=== PATIENT | female | born 1935 | race Caucasian/White ===

== ENCOUNTER 2018-12-31 10:43 | Emergency (ER) | payer MEDICARE ==
[~2018-12-31] VITALS: Ht 165.1 cm; Wt 127.0 kg
--- NOTE | 2018-12-31 11:10 | RAD ---
Chest radiograph 12/31/2018 10:53 AM INDICATION: Cardiac arrest COMPARISON: None available TECHNIQUE: Supine frontal view of the chest is provided. FINDINGS: The cardiomediastinal silhouette is within normal limits. Endotracheal tube terminates 2.2 cm above the level of the jose. There is asymmetric alveolar airspace disease involving the right upper lobe with mild pulmonary vascular congestion. No pleural effusions or pneumothorax. IMPRESSION: Endotracheal tube is in appropriate position. There is asymmetric alveolar airspace disease involving the right upper lobe with underlying mild pulmonary vascular congestion. Findings most favor asymmetric pulmonary edema or hemorrhage in setting of cardiac arrest. Electronically signed by: Cally Belle MD (12/31/2018 11:07 AM) [id number]
--- NOTE | 2018-12-31 11:18 | PHYS DOC ---
Past History Past Medical History: CHF, Diabetes, Hypertension Smoking: Non-smoker Adult General Chief Complaint Chief Complaint: post code blue HPI HPI Patient is a 83 year old female with history of advanced CHF on hospice care without DNR condition brought in by EMS with cardiopulmonary addressed. Patient had flulike symptom with sick contacts at home for the last few weeks and continued to have cough and congestion and shortness of breath. Patient complaining of more shortness of breath today and had weakness or loss of consciousness and cardiorespiratory arrest with starting CPR by firefighters. EMS reported that patient had pulseless ventricular fibrillation and electrical shock and CPR was started. Patient was intubated with 5.5 ET tube with good oxygenation. Patient had several episodes of cardiac arrest and returning pulse. Patient brought to the ED with spontaneous pulse and assisted breathing. Patient was on amiodarone drip. Review of Systems Review of Systems Unable to obtain because of altered level of consciousness and CPR in progress Physical Exam Physical Exam Constitutional: Unresponsive HENT: Normocephalic, atraumatic Eyes: Sluggish pupils without dilation Neck: atraumatic Cardiovascular: Very faint cardiac activity with bradycardia Lungs & Thorax: Assisted breathing Abdomen: Bowel sounds normal, soft, no tenderness, no masses, no pulsatile masses. [] Skin: Warm, dry, no erythema, no rash. [] Extremities: 3 + edema Neurologic: Unresponsive Psychologic: Unable to evaluate EKG EKG Age interpreted by me. EKG at 1059 showed wide-complex sinus tachycardia at rate of 126, left axis deviation, nonspecific intraventricular block, no acute ST and T-wave elevation. Radiology/Procedures Radiology/Procedures [address] [address] IMAGING REPORT Signed PATIENT: SOLA LEES ACCOUNT: [id number] : 1935 LOCATION: ER AGE: 83 SEX: F EXAM STATUS: REG ER ORD. PHYSICIAN: RANDI ROSS MD REASON: CARDIAC ARREST PROCEDURE: PORTABLE CHEST 1V Chest radiograph 12/31/2018 10:53 AM INDICATION: Cardiac arrest COMPARISON: None available TECHNIQUE: Supine frontal view of the chest is provided. FINDINGS: The cardiomediastinal silhouette is within normal limits. Endotracheal tube terminates 2.2 cm above the level of the jose. There is asymmetric alveolar airspace disease involving the right upper lobe with mild pulmonary vascular congestion. No pleural effusions or pneumothorax. IMPRESSION: Endotracheal tube is in appropriate position. There is asymmetric alveolar airspace disease involving the right upper lobe with underlying mild pulmonary vascular congestion. Findings most favor asymmetric pulmonary edema or hemorrhage in setting of cardiac arrest. Electronically signed by: Ramone Prince MD (12/31/2018 11:07 AM) [facility] DICTATED AND SIGNED BY: RAMONE PRINCE MD DATE: 12/31/18 1107 CC: RANDI ROSS MD; PCP,NO ~ Course & Med Decision Making Course & Med Decision Making Pertinent Labs and Imaging studies reviewed. (See chart for details) Evaluation of patient in ER showed 83-year-old female patient with a status post coronary condition. Patient had faint Cardiac activity at arrival to ER and had several episodes of CPR. Please see CODE BLUE sheet for details of CPR. Patient finally had stable vital signs at this point tender nose cardiac activity and improvement of breathing. Assisted breathing was continued. Dr. Raygoza accepted transfer to [facility] ICU at 1110. Dragon Disclaimer Dragon Disclaimer This electronic medical record was generated, in whole or in part, using a voice recognition dictation system. Departure Departure: Impression: Primary Impression: Cardiopulmonary arrest with successful resuscitation Additional Impressions: Respiratory acidosis Sepsis Elevated troponin Renal insufficiency Elevated liver function tests Pulmonary edema Hyperglycemia Morbid obesity with BMI of 45.0-49.9, adult Disposition: [facility] ([facility] at 1111) Admitting Physician: Noreen Raygoza (accepted transfer to [facility] at 1110) Condition: CRITICAL Referrals: [facility] (PCP) Critical Care Time Critical care time was 50 minutes exclusive of procedures. Problem Qualifiers Additional Impressions: Sepsis Sepsis type: sepsis due to unspecified organism Qualified Codes: A41.9 - Sepsis, unspecified organism Pulmonary edema Chronicity: acute Qualified Codes: J81.0 - Acute pulmonary edema RANDI ROSS MD Dec 31, 2018 11:18
[2018-12-31 11:30] LABS: BASO # 0.1 x10^3/uL (0.0-0.2); BASO % 1 % (0-3); EOS # 0.3 x10^3/uL (0.0-0.7); EOS % 1 % (0-3); HEMATOCRIT 37.6 % (36.0-47.0); HEMOGLOBIN 11.7 g/dL (12.0-15.5); LYMPH # 7.4 x10^3/uL (1.0-4.8); LYMPH % 30 % (24-48); MEAN CORPUSCULAR HEMOGLOBIN 26 pg (25-35); MEAN CORPUSCULAR HGB CONC 31 g/dL (31-37); MEAN CORPUSCULAR VOLUME 85 fL (79-100); MONO # 0.8 x10^3/uL (0.0-1.1); MONO % 3 % (0-9); NEUT # 16.3 x10^3uL (1.8-7.7); NEUT % 66 % (31-73); PLATELET COUNT 326 x10^3/uL (140-400); RED BLOOD COUNT 4.43 x10^6/uL (3.50-5.40); RED CELL DISTRIBUTION WIDTH 14.6 % (11.5-14.5); WHITE BLOOD COUNT 24.9 x10^3/uL (4.0-11.0)
[2018-12-31] MEDS ORDERED: SODIUM BICARB ADULT 8.4% 50 MEQ/50 ML DISP.SYRIN. ONE (11:30)
[2018-12-31] MEDS ORDERED: ATROPINE 1 MG/10 ML DISP.SYRINGE. ONE (11:30)
[2018-12-31] MEDS ORDERED: cefTRIAXone SODIUM 1 GM VIAL ONE (11:32)
[2018-12-31] MEDS ORDERED: IV NORMAL SALINE 50ML 50 ML ONE (11:32)
[2018-12-31 11:42] LABS: ALBUMIN 2.6 g/dL (3.4-5.0); ALBUMIN/GLOBULIN RATIO 0.7 (1.0-1.7); CALCIUM 8.8 mg/dL (8.5-10.1); CREATININE 1.4 mg/dL (0.6-1.0); GFR 35.7; MAGNESIUM 2.1 mg/dL (1.8-2.4); POTASSIUM 4.4 mmol/L (3.5-5.1); TOTAL BILIRUBIN 0.3 mg/dL (0.2-1.0); TOTAL PROTEIN 6.6 g/dL (6.4-8.2)
[2018-12-31 11:56] LABS: % BANDS 7 % (0-9); % LYMPHS 33 % (24-48); % SEGS 52 % (35-66)
[2018-12-31 11:58] LABS: % ATYL 5 % (0-0); % MONOS 3 % (0-10); PLT ESTIMATE ADEQUATE (ADEQUATE)
[2018-12-31 12:09] LABS: BGAS PH 7.19 (7.35-7.45)
[2018-12-31 12:28] VITALS: BP 124/76
--- NOTE | 2019-01-01 14:32 | EKG ---
[address] [address] Test Date: 2018-12-31 Test Time: 10:59:10 Pat Name: SOLA LEES Department: Room: Gender: F Resource Analyst: : 1935 Requested By: RANDI ROSS Order Number: [id number] Reading MD: Burton Higgins MD Measurements Intervals [place] Rate: 126 P: IN: QRS: -66 QRSD: 184 T: 107 QT: 350 QTc: 507 Interpretive Statements PROBABLE JUNCTIONAL TACHYCARDIA, AIVR Electronically Signed On 01-02-2019 14:40:31 CDT by Burton Higgins MD
== END 2018-12-31 12:00 | disposition short-term general hospital (02) ==
LOC: ER 10:43
DX: I11.0 Hypertensive heart disease with heart failure (principal); I46.2 Cardiac arrest due to underlying cardiac condition; I50.1 Left ventricular failure, unspecified; A41.9 Sepsis, unspecified organism; E87.2 Acidosis; N28.9 Disorder of kidney and ureter, unspecified; R79.89 Other specified abnormal findings of blood chemistry; E11.65 Type 2 diabetes mellitus with hyperglycemia; E66.01 Morbid (severe) obesity due to excess calories; Z68.42 Body mass index [BMI] 45.0-49.9, adult
CPT/HCPCS: 36415; 36600; 71045; 80053; 82550; 82803; 83605; 83735; 84484; 85007; 85025; 87040; 92950; 96365; 99291; J0461; J0696